=== PATIENT | female | born 2000 | race Caucasian/White ===

== ENCOUNTER 2025-02-18 08:26 | Emergency (ER) | payer OTHER ==
[~2025-02-18] VITALS: Ht 172.7 cm; Wt 68.0 kg
[2025-02-18 09:30] LABS: Source, Urine Clean Catch
[2025-02-18] MEDS ORDERED: Doxycycline Hyclate 100 MG in Dextrose 5% 250 ML IV ONE (09:30)
[2025-02-18] MEDS ORDERED: CefTRIAXone 500 MG Vial IM ONE (09:30)
[2025-02-18] MEDS ORDERED: Acyclovir 200 MG Cap PO ONE (09:30)
[2025-02-18 09:34] LABS: Appearance, Urine Clear (Clear); Bilirubin, Urine Neg (Neg); Blood, Urine 3+ (Neg); Color, Urine Yellow (P-Yellow); Glucose Qualitative, Urine Neg (Neg); Ketones, Urine Neg (Neg); Leukocyte Esterase, Urine 2+ (Neg); Nitrite, Urine Neg (Neg); Protein, Urine 1+ (Neg); Urobilinogen, Urine NORM (Normal)
[2025-02-18] MEDS ORDERED: DOXY100 PO (09:35)
[2025-02-18] MEDS ORDERED: ACYC400 PO (09:35)
[2025-02-18 09:50] LABS: Hyaline Casts 0-2 /lpf (0-2)
[2025-02-18 09:51] LABS: Amorphous Mod (0-Heavy); Bacteria Mod /hpf
[2025-02-18 09:52] LABS: Mucus Heavy (0-Heavy); Squamous Epithelial Cells Many /hpf (Few)
[2025-02-18] MEDS ORDERED: CefTRIAXone Sodium 1,000 MG in NS 100 ML IV ONE (09:55)
[2025-02-18 11:06] LABS: Bacterial Vaginosis PCR Negative (NEGATIVE); Candida glabrata-krusei, PCR NOT DETECTED (NOT DETECT)
[2025-02-18 11:37] LABS: Candida Group, PCR DETECTED (NOT DETECT); Chlamydia Trachomatis Vaginal NOT DETECTED (NOT DETECT); Neisseria Gonorrhoea Vaginal NOT DETECTED (NOT DETECT)
== END 2025-02-18 12:26 | disposition home or self-care (01) ==
LOC: ER 08:26
PROVIDERS: Emergency Medicine
DX: A60.04 Herpesviral vulvovaginitis (principal); Z91.040 Latex allergy status
CPT/HCPCS: 81001; 81025; 81515; 87086; 87147; 87491; 87591; 96365; 96366; 96368; 99283-25; A9270; J0696; J7060